=== PATIENT | female | born 1960 | race Caucasian/White ===

== ENCOUNTER 2017-07-30 12:49 | Day surgery (SDC) | payer BC, OTHER ==
[2017-07-30] MEDS ORDERED: ceFAZolin 2 GM PREMIX (*) 2 GM/50 ML BAG IVPB ONE (13:01)
[2017-07-30] MEDS ORDERED: Buffered Lidocaine 0.9% SYRIN* 5 ML/SYR SYRINGE ONE (13:01)
[2017-07-30] MEDS ORDERED: Buffered Lidocaine 0.9% SYRIN* 5 ML/SYR SYRINGE INTRADERM ONE (14:06)
[2017-07-30] MEDS ORDERED: Famotidine TAB* 20 MG PO ONE (14:06)
[2017-07-30] MEDS ORDERED: PROCHLORPERAZINE INJ 5 MG/ML 2 ML VIAL IV PRN (14:08)
[2017-07-30] MEDS ORDERED: fentaNYL* 50 MCG/ML 2 ML VIAL (100 MCG VIAL) IV PRN (14:08)
[2017-07-30] MEDS ORDERED: DiMENhydriNATE IV* 50 MG/ML VIAL IV PUSH PRN (14:08)
[2017-07-30] MEDS ORDERED: oxyCODONE/Acetamin 5/325 MG* TAB PO PRN (14:08)
[2017-07-30] MEDS ORDERED: Naloxone* 0.4 MG/ML 1 ML VIAL IV PRN (14:08)
[2017-07-30] MEDS ORDERED: Morphine INJ* 2 MG/ML 1 ML CARPUJECT IV PRN (14:08)
[2017-07-30] MEDS ORDERED: Scopolamine 1.5 mg* PATCH TRANSDERM PRN (14:08)
[2017-07-30] MEDS ORDERED: Famotidine TAB* 20 MG ONE (14:21)
[2017-07-30] MEDS ORDERED: fentaNYL* 50 MCG/ML 2 ML VIAL (100 MCG VIAL) ONE ×2 (15:03→16:35)
[2017-07-30] MEDS ORDERED: Midazolam* 1 MG/ML 5 ML VIAL (5 MG) ONE (15:04)
[2017-07-30] MEDS ORDERED: Lidocaine 2% PF * 5 ML VIAL ONE ×2 (15:04→16:36)
[2017-07-30] MEDS ORDERED: Atracurium* 10 MG/ML 10 ML VIAL ONE (15:04)
[2017-07-30] MEDS ORDERED: Morphine INJ* 10 MG/ML 1 ML CARPUJECT ONE (16:19)
[2017-07-30] MEDS ORDERED: Dexamethasone IV* 4 MG/ML 1 ML (4 MG) ONE (16:35)
[2017-07-30] MEDS ORDERED: Propofol* 10 MG/ML 20 ML BTL IV PUSH ONE (16:35)
[2017-07-30] MEDS ORDERED: Ondansetron INJ* 2 MG/ML VIAL ONE (16:35)
[2017-07-30] MEDS ORDERED: EPHEDrine (Pressors)* 50 MG/ML VIAL ONE (16:37)
[2017-07-30 20:10] VITALS: BP 118/73
--- NOTE | 2017-07-31 02:56 | OP ---
DATE OF OPERATION: 07/30/17 - [facility] DATE OF : 64 SURGEON: Elton Carolina MD SENIOR ELECTRICAL CONTROLS ENGINEER: MARANDA Umana and MARANDA Leos. An real estate legal assistant was needed through the entirety of the procedure to aid in positioning of the arm and retraction. ANESTHESIOLOGIST: Dr. Bergman. ANESTHESIA: General. PRE-OP DIAGNOSIS: Left displaced and comminuted midshaft clavicle fracture. POST-OP DIAGNOSIS: Left displaced and comminuted midshaft clavicle fracture. PROCEDURE PERFORMED: Open reduction and internal fixation of the left clavicle fracture. INDICATIONS: Brianne was in [place] couple of weeks ago where she fractured the left clavicle. She came to the office 2 weeks out from the injury. She had seemed a different surgeon, who recommended surgery; however, she wanted to meet me and see if I could do the surgery for, so we set things up for this week. I agreed that it was quite short and displaced. I thought it would do better with open treatment. We did talk about the risks, benefits including the risk of malunion, nonunion, infection, wound problems, numbness above the incision. She wants to proceed. ESTIMATED BLOOD LOSS: 25 mL. COMPLICATIONS: None. FINDINGS: As expected. DESCRIPTION OF PROCEDURE: Brianne was seen in the preoperative holding area. The correct side, site, and procedure were identified. We came back to the operating room where the arm was prepped and draped in the usual fashion. A thorough pre-scrub was performed. A time-out was performed. She was positioned in the lazy beach-chair position. I began by making a curvilinear incision over the anterior superior border of the clavicle. Dissection was carried down, and full-thickness flaps were raised over the fascia. The fascia was incised over the clavicle, and full- thickness subperiosteal flaps were raised exposing the proximal and distal fragments. There was piece of anterior superior comminution that was moved out of the way. There was a very large inferior butterfly fragment that was mobilized. Once I had taken quite a bit of time and debrided the fracture hematoma, released the soft tissue, so that I was able to mobilize the pieces and get the pieces back out to length. I went ahead and brought the inferior butterfly fragment up to the distal fragment and clamped it in place with a pointer reduction clamp. A 1.0 mm K-wire was then used to further provisional reduction. A 2.0 mm lag screw was then placed. I then reduced the distal fragment to the proximal fragment and this was provisionally held with a couple of clamps. I placed another 2.0 mm lag screw. The fracture was held together quite nicely. The clamps were removed. I then brought in a 2.4 mm plate of the Synthes locking modular mini set. This was a Recon plate. I bent and arc and twisted the plate to contour it onto the anterior cortex of the clavicle. It was clamped into place and secured with multiple 2.4 mm cortical screws proximally and distally. I then bent and contoured a 2.0 mm Recon plate and placed this on the superior aspect of the clavicle. This was then secured with multiple 2.0 mm cortical screws proximally and distally. The fixation at this point was quite solid. The wound was copiously irrigated. The fascia was closed with 3-0 Vicryl suture. Skin was closed with 3-0 Monocryl and Steri- Strips. The area was infiltrated with 0.25% plain Marcaine. The wound was dressed with 4x4s and Tegaderms. She was woken up and taken to the recovery room in stable condition. [id number]/[facility] #: [id number] [facility]ITAL[facility]
[2017-08-02] MEDS ORDERED: Scopolamine PATCH Remove* 1 NOTE MISC PATCH OFF ONE (14:09)
== END 2017-07-30 20:36 | disposition home or self-care (01) ==
LOC: OR 12:49
PROVIDERS: ATTEND Orthopaedic Surgery Hand Surgery
DX: S42.022A Displaced fracture of shaft of left clavicle, initial encounter for closed fracture (principal); S22.39XA Fracture of one rib, unspecified side, initial encounter for closed fracture; W19.XXXA Unspecified fall, initial encounter; Y92.9 Unspecified place or not applicable; F41.8 Other specified anxiety disorders
CPT/HCPCS: A9270-GY; C1713; C1776; J0690; J1100; J2250; J2270; J2405; J2704; J3010